=== PATIENT | female | born 1980 | race Caucasian/White ===

== ENCOUNTER 2022-05-10 14:07 | Outpatient (CLI) | payer BC, SELFPAY ==
--- NOTE | ~2022-05-10 | US_ITS ---
EXAMINATION: US pelvic complete w TV DATE: 05/10/2022 15:14 INDICATION: Right pelvic pain. History of ovarian cyst. Comparison:No prior studies for comparison. TECHNIQUE: Multiple transabdominal and endovaginal sonographic images of the pelvis performed. FINDINGS: The uterus measures 7.4 x 4.2 x 4.4 cm. There is an intramural mass of the uterus measuring 3.4 x 2.5 x 3.1 cm, consistent with a fibroid. The endometrial complex measures 7 mm. The right ovary measures 2.2 x 1.3 x 2.8 cm and the left ovary measures 4.4 x 2.5 x 3 cm. There is a left ovarian cyst measuring 3.7 cm. There are small follicles in each ovary. Normal doppler signal in both ovaries. There is a tubular structure in the right adnexa measuring 3.6 x 2.6 x 0.8 cm, possibl y hydrosalpinx. There is no free fluid in the pelvis. There are no abnormal masses seen on either side. IMPRESSION: 1. Intramural fibroid measuring 3.4 cm. 2: Left ovarian cyst measuring 3.7 cm. 3: Tubular structure containing fluid in the right adnexa measuring up to 3.6 cm, possibly hydrosalp inx. Reviewed, dictated and finalized at location A. [employer] IMPRESSION: 1. Intramural fibroid measuring 3.4 cm. 2: Left ovarian cyst measuring 3.7 cm. 3: Tubular structure containing fluid in the right adnexa measuring up to 3.6 cm, possibly hydrosalpinx.
== END 2022-05-10 14:08 | disposition home or self-care (01) ==
PROVIDERS: PCP Family Medicine; Visit Provider Obstetrics & Gynecology
DX: R10.31 Right lower quadrant pain (principal); N83.202 Unspecified ovarian cyst, left side; D25.9 Leiomyoma of uterus, unspecified
CPT/HCPCS: 76830; 76856